=== PATIENT | male | born 1980 | race American Indian/Alaskan Native ===

== ENCOUNTER 2017-05-24 10:14 | Emergency (ER) | payer OTHER ==
[2017-05-24 11:00] VITALS: BP 117/74
[2017-05-24] MEDS ORDERED: MOTRIN PO ONE (13:36)
--- NOTE | 2017-05-24 13:37 | Emergency Department Report ---
ED Head Trauma HPI - General Chief complaint: Head Injury Stated complaint: HEAD INJURY Time Seen by Provider: 05/24/17 13:35 Source: patient, EMS Mode of arrival: Ambulatory Limitations: No Limitations - History of Present Illness Initial comments: 37-year-old past medical history inguinal hernia repair male presents with complaint of mild headache status post accident at work today. 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 Patient denies sustaining a laceration denies losing consciousness. States he was momentarily dazed but did not lose consciousness. On exam patient is awake alert and oriented 3 and is holding a bag of ice to the top of his head. Patient denies dizziness blurry vision neck pain or injury to any other body part. Patient has a picture of the metallic object which dropped on his head which he states is approximately 1-2 pounds and dropped from a height of slightly over 10 feet or possibly over 10 feet. Patient is accompanied by his at bedside. Patient is awake alert and oriented 3 does not appear to be in any acute distress but does complain of 5 out of 10 pain directly underlying skin on his right upper scalp/parietal region , states he feels a small lump here. 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 Complaint: head pain -: This morning Mechanism of Injury: work related injury (metal wheel-bearing fell from warehouse frame as per pt) Location: parietal Loss of Consciousness: no Previous Trauma to this Area: No Place: work Radiation: none Severity: moderate Severity scale (0 -10): 5 Quality: aching Consistency: constant Provoking factors: none known Other Injuries: none Associated Symptoms: denies other symptoms - Related Data Previous Rx's Medication Instructions Recorded Last Taken Type Naproxen [Naprosyn TAB] 500 mg PO BID PRN #30 tablet 05/24/17 Unknown Rx Allergies/Adverse reactions: Allergies Allergy/AdvReac Type Severity Reaction Status Date / Time No Known Allergies Allergy Unverified 05/24/17 10:55 ED Review of Systems ROS: Stated complaint: HEAD INJURY Other details as noted in HPI Constitutional: denies: chills, fever Eyes: denies: eye pain, eye discharge, vision change ENT: denies: ear pain, throat pain Respiratory: denies: cough, shortness of breath, wheezing Cardiovascular: denies: chest pain, palpitations Endocrine: no symptoms reported Gastrointestinal: denies: abdominal pain, nausea, diarrhea Genitourinary: denies: urgency, dysuria Musculoskeletal: denies: back pain, joint swelling, arthralgia Skin: denies: rash, lesions Neurological: denies: headache, weakness, paresthesias Psychiatric: denies: anxiety, depression Hematological/Lymphatic: denies: easy bleeding, easy bruising ED Past Medical Hx - Past Medical History Previous Medical History?: No - Surgical History Past Surgical History?: Yes Additional Surgical History: right testicle hernis repair - Social History Smoking Status: Former Smoker Substance Use Type: Marijuana - Medications Home Medications: Home Medications Medication Instructions Recorded Confirmed Last Taken Type Naproxen [Naprosyn TAB] 500 mg PO BID PRN #30 tablet 05/24/17 Unknown Rx ED Physical Exam - General Limitations: No Limitations General appearance: alert, in no apparent distress - Head Head exam: Present: atraumatic, normocephalic - Expanded Head Exam Expanded Head exam: Present: contusion (small contusion on right side temporal parietal scalp, slightly tender to palpation) 1 - Patient states he has some tenderness on palpation here, no lacerations, small palpable lump beneath the skin on scalp. - Eye Eye exam: Present: normal appearance, PERRL, EOMI - ENT ENT exam: Present: mucous membranes moist - Neck Neck exam: Present: normal inspection, full ROM (range of motion neck fully intact neck flexion and extension lateral rotation and lateral flexion intact on exam) - Respiratory Respiratory exam: Present: normal lung sounds bilaterally. Absent: respiratory distress - Cardiovascular Cardiovascular Exam: Present: regular rate, normal rhythm. Absent: systolic murmur, diastolic murmur, rubs, gallop - GI/Abdominal GI/Abdominal exam: Present: soft, normal bowel sounds - Rectal Rectal exam: Present: deferred - Extremities Exam Extremities exam: Present: normal inspection - Back Exam Back exam: Present: normal inspection - Neurological Exam Neurological exam: Present: alert, oriented X3, CN II-XII intact, normal gait - Expanded Neurological Exam Expanded Patient oriented to: Present: person, place, time Cerebellar function: Finger to Nose: Normal, Heel to Kwan: Normal, Romberg: Normal Sensory exam: Upper Extremity Light Touch: Normal, Lower Extremity Light Touch: Normal Motor strength exam: RUE: 5, LUE: 5, RLE: 5, LLE: 5 Best Eye Response ([place]): (4) open spontaneously Best Motor Response ([place]): (6) obeys commands Best Verbal Response ([place]): (5) oriented Job Total: 15 - Psychiatric Psychiatric exam: Present: normal affect, normal mood - Skin Skin exam: Present: warm, dry, intact, normal color. Absent: rash ED Course Vital Signs 05/24/17 10:55 Temperature 98.1 F Pulse Rate 74 Respiratory 18 Rate Blood Pressure 117/74 O2 Sat by Pulse 99 Oximetry - Medical Decision Making A/P: Minor head trauma, hit by falling object, post concussion precautions, scalp contusion 1-patient had no loss of consciousness. CN 1-12 grossly intact is fully lucid cooperative and calm. Patient given post concussion precautions to return to the ED for any severe irritability confusion and lethargy nausea vomiting and inability to tolerate by mouth. Patient's present for this conversation and stated that she will keep a close eye on him for next several days. 2-pt is ambulatory without assistance 3-sustained no lacerations, CT head unremarkable no fractures no intracranial hemorrhage 4- naproxen when necessary, ice to area intermittently - NEXUS Criteria Focal neurological deficit present: No Midline spinal tenderness present: No Altered level of consciousness: No Intoxication present: No Distracting injury present: No NEXUS results: C-Spine can be cleared clinically by these results. Imaging is not required. Critical care attestation.: If time is entered above; I have spent that time in minutes in the direct care of this critically ill patient, excluding procedure time. ED Disposition Clinical Impression: Work related injury Minor head injury Qualifiers: Encounter type: initial encounter Qualified Code(s): S00.90XA - Unspecified superficial injury of unspecified part of head, initial encounter Scalp contusion Qualifiers: Encounter type: initial encounter Qualified Code(s): S00.03XA - Contusion of scalp, initial encounter Struck by falling object Qualifiers: Encounter type: initial encounter Qualified Code(s): W20.8XXA - Other cause of strike by thrown, projected or falling object, initial encounter Disposition: DC-01 TO HOME OR SELFCARE Is pt being admited?: No Does the pt Need Aspirin: No Condition: Stable Instructions: Minor Head Injury (ED), Post Concussion Syndrome (ED) Prescriptions: Naproxen [Naprosyn TAB] 500 mg PO BID PRN #30 tablet PRN Reason: Headache Referrals: NANCY PFEIFFER JR, MD [Staff Physician] - 3-5 Days [facility] [Outside] - 3-5 Days [facility] [Provider Group] - 3-5 Days Forms: Accompanied Note, Work/School Release Form(ED) Time of Disposition: 14:56
--- NOTE | 2017-05-24 14:45 | Cat Scan Report ---
FINAL REPORT PROCEDURE: CT HEAD/BRAIN WO CON TECHNIQUE: Computerized tomography of the head was performed without contrast material. HISTORY: work accident metal object fell on head 10+feet hi COMPARISON: No prior studies are available for comparison. FINDINGS: Likely mild rounded mucosal thickening is seen in the left maxillary sinus. Maxillary sinuses are not fully included on the study. Mastoid air cells appear clear. No calvarial fracture is seen. No CVA is seen. Cerebral ventricles are normal in size. No acute intracranial hemorrhage is seen. IMPRESSION: No acute abnormality is seen.
== END 2017-05-24 15:03 | disposition home or self-care (01) ==
LOC: ED 10:14
DX: S00.03XA Contusion of scalp, initial encounter (principal); Z87.891 Personal history of nicotine dependence; F12.10 Cannabis abuse, uncomplicated; W20.8XXA Other cause of strike by thrown, projected or falling object, initial encounter; Y93.89 Activity, other specified; Y92.89 Other specified places as the place of occurrence of the external cause; Y99.8 Other external cause status
CPT/HCPCS: 70450